=== PATIENT | female | born 1940 | race Caucasian/White ===

== ENCOUNTER 2018-06-26 11:58 | Emergency (ER) | payer OTHER ==
[~2018-06-26] VITALS: Ht 160 cm; Wt 72.6 kg
[~2018-06-26 11:58] MED LIST: ASPIR 8181 M1 PO; AUGMENTIN 875875 MG PO; COZAAR 50 MG TA50 M2 PO; DYAZIDE 37.5-21 EACH PO; NORVASC 5 MG TAB5 MG; ROBITUSSIN PO
[2018-06-26] MEDS ORDERED: HYDROCHLOROTH12.5 M1 PO (12:22)
[2018-06-26] MEDS ORDERED: LIPITOR 20 MG T20 M1 PO (12:24)
[2018-06-26] MEDS ORDERED: Q-SORB CO Q-10100 MG PO (12:24)
[2018-06-26] MEDS ORDERED: ARIMIDEX PO (12:25)
[2018-06-26] MEDS ORDERED: CALCIUM 500 +1 EAC5 PO (12:25)
[2018-06-26] MEDS ORDERED: CENTRUM SILVER1 EAC4 PO (12:26)
[2018-06-26 13:41] VITALS: BP 153/86
== END 2018-06-26 13:42 | disposition home or self-care (01) ==
LOC: ER 11:58
DX: S00.03XA Contusion of scalp, initial encounter (principal); I10 Essential (primary) hypertension; E78.5 Hyperlipidemia, unspecified; M81.0 Age-related osteoporosis without current pathological fracture; Z77.22 Contact with and (suspected) exposure to environmental tobacco smoke (acute) (chronic); Z91.040 Latex allergy status; W00.0XXA Fall on same level due to ice and snow, initial encounter; Y92.89 Other specified places as the place of occurrence of the external cause; Y93.89 Activity, other specified; Y99.8 Other external cause status

== ENCOUNTER → 2019-06-08 | Outpatient (CLI) | payer OTHER ==
[~2019-06-08] MED LIST changes: +ANTIVERT25 MG PO; +ARIMIDEX PO; +CALCIUM 500 +1 EAC5 PO; +CENTRUM SILVER1 EAC4 PO; +HYDROCHLOROTH12.5 M1 PO; +LIPITOR 20 MG T20 M1 PO; +Q-SORB CO Q-10100 MG PO
== END ==
LOC: SJCVCIMAG 11:10
DX: R07.9 Chest pain, unspecified (principal); E78.5 Hyperlipidemia, unspecified; Z82.49 Family history of ischemic heart disease and other diseases of the circulatory system

== ENCOUNTER → 2020-04-26 | Outpatient (CLI) | payer OTHER | LOC: SJCVC 14:17 | PROVIDERS: ATTEND Internal Medicine Cardiovascular Disease | DX: E78.00 Pure hypercholesterolemia, unspecified (principal); I10 Essential (primary) hypertension; F41.9 Anxiety disorder, unspecified; Z82.49 Family history of ischemic heart disease and other diseases of the circulatory system; Z85.3 Personal history of malignant neoplasm of breast; Z79.82 Long term (current) use of aspirin; Z79.899 Other long term (current) drug therapy ==

== ENCOUNTER → 2021-01-25 | Outpatient (CLI) | payer OTHER | LOC: SJCVC 10:20 | PROVIDERS: ATTEND Internal Medicine Cardiovascular Disease | DX: R94.31 Abnormal electrocardiogram [ECG] [EKG] (principal); R06.00 Dyspnea, unspecified; I10 Essential (primary) hypertension; E78.00 Pure hypercholesterolemia, unspecified; F41.9 Anxiety disorder, unspecified; G47.00 Insomnia, unspecified; E61.1 Iron deficiency; Z85.3 Personal history of malignant neoplasm of breast; Z79.899 Other long term (current) drug therapy; Z82.49 Family history of ischemic heart disease and other diseases of the circulatory system ==

== ENCOUNTER → 2021-03-19 | Outpatient (CLI) | payer OTHER | LOC: SJCVCIMAG 08:52 | PROVIDERS: ATTEND Internal Medicine Cardiovascular Disease | DX: R06.00 Dyspnea, unspecified (principal); E78.5 Hyperlipidemia, unspecified; I10 Essential (primary) hypertension; R53.83 Other fatigue ==